=== PATIENT | female | born 1980 | race Caucasian/White ===

== ENCOUNTER 2016-03-13 20:52 | Emergency (ER) | payer MEDICAID ==
[2016-03-13 21:11] VITALS: RESP 16; TEMP 97.9
[2016-03-13] MEDS ORDERED: VANCOMYCIN 1 GM in NS 250 ML IV ONE (21:15)
--- NOTE | 2016-03-13 21:19 | UCPHY ---
H & P Time Seen by Provider: 03/13/16 21:02 Patient Type: Established HPI/ROS: CHIEF COMPLAINT: Infected left hand HPI: The patient is a 35-year-old female history of chronic pain and Graves disease who complains of pain and swelling to the dorsum of her left hand approximately 2 days ago. The patient denies any potential injury. She initially denied any break in skin, but then stated that she cut herself with a razor accidentally to her left hand. Upon further questioning, the patient admits that she has been injecting drugs into the vein of both hands recently. REVIEW OF SYSTEMS: Aside from elements discussed in the HPI, a comprehensive 10-point review of systems was reviewed and is negative. PMH: Chronic pain, Graves disease, substance abuse SOCIAL HISTORY: Patient admits to IV drugs use. FAMILY HISTORY: Reviewed, history of substance abuse. PHYSICAL EXAM: General:Patient is alert, in no acute distress. ENT:Eyes are normal to inspection. ENT inspection normal. Neck: Normal inspection. Full range of motion. Extremities: Left hand: Tenderness to palpation, erythema consistent with cellulitis is present over the dorsum of the left hand, primarily over the 4th metacarpal ray with some mild extension into the wrist. Multiple track freitas are noted along several veins in the forearm and hand. Neuro: Oriented x3. Normal motor function. Normal sensory function. Smoking Status: Current every day smoker Constitutional: Initial Vital Signs Temperature (C) 36.6 C 03/13/16 21:00 Heart Rate 98 03/13/16 21:00 Respiratory Rate 16 03/13/16 21:00 Blood Pressure 122/71 H 03/13/16 21:00 O2 Sat (%) 97 03/13/16 21:00 O2 Delivery Mode Room Air Allergies/Adverse Reactions: No Known Allergies Allergy (Verified 03/13/16 21:07) Home Medications: Medication Instructions Recorded Oxycodone HCl 01/19/13 Alprazolam 03/13/16 Cephalexin [Keflex] 500 mg PO Q6H #28 cap 03/13/16 Levothyroxine 03/13/16 Medical Decision Making ED Course/Re-evaluation: This patient presents with cellulitis of the hand likely caused by IV drug use. I had extensive discussion with the patient and which she admitted to using IV drugs. I counseled her regarding need for follow-up and she states that she is in process of setting up a stay at a rehab facility in [place]. I offered her further resources but she declined. Will treat her with IV dose of vancomycin here as well as a prescription for Keflex. Departure - Departure Disposition: Home, Routine, Self-Care Clinical Impression: Cellulitis Condition: Good Instructions: Cellulitis (ED) Additional Instructions: Return to the Urgent Care or ER within 48-72 hours for recheck to ensure the redness/infection is decreasing. If redness, pain increase or fever develops, return immediately. Please seek help for her substance abuse problem. Prescriptions: Cephalexin [Keflex] 500 mg PO Q6H #28 cap - PQRS PQRS Measurement: 134: Depression screening and followup, PRIME MD-PHQ2 (12 years and older) Over the last 2 weeks, how often have you been bothered by any of the following problems? 1. Feeling down, depressed, or hopeless? 2. Little interest or pleasure in doing things? Patient answered no to both 1 and 2 130: Documentation of medications. Reviewed all patient medications, doses, route and frequency. 226: Do you smoke? Yes. 51: 18 years old and older with diagnosis of COPD, spirometry performance. Spirometry not performed; equipment not available. Patient has no history of COPD 52: 18 years old and older with COPD and symptoms of COPD or FEV1<60% predicted prescribed a B Agonist. Spirometry not performed; equipment not available.
[2016-03-13 21:51] LABS: % IMMATURE GRANULYOCYTES 0.2 % (0.0-1.1); ABSOLUTE IMMATURE GRANULOCYTES 0.02 10^3/uL (0.00-0.10); ADD DIFF? NO; ADD MORPH? NO; ADD SCAN? NO; ATYPICAL LYMPHOCYTE FLAG 20 (0-99); FRAGMENT RBC FLAG 0 (0-99); HEMATOCRIT 38.1 % (38.0-47.0); HEMOGLOBIN 12.1 g/dL (12.6-16.3); LEFT SHIFT FLG 0 (0-99); LIPEMIA HEMOLYSIS FLAG 80 (0-99); MEAN CELL HEMOGLOBIN 28.4 pg (27.9-34.1); MEAN CELL HEMOGLOBIN CONCENTR. 31.8 g/dL (32.4-36.7); MEAN CELL VOLUME 89.4 fL (81.5-99.8); MEAN PLATELET VOLUME 9.6 fL (8.7-11.7); PLATELET CLUMPS FLAG 20 (0-99); PLATELET COUNT 290 10^3/uL (150-400); RED BLOOD CELL COUNT 4.26 10^6/uL (4.18-5.33); RED CELL DISTRIBUTION WIDTH 15.1 % (11.5-15.2)
[2016-03-13] MEDS ORDERED: CEPHALEXIN 500 MG CAP PO ONE (22:22)
[2016-03-13 22:34] LABS: ANION GAP 12 mEq/L (8-16); CALCIUM 9.3 mg/dL (8.5-10.4); CARBON DIOXIDE 25 mEq/l (22-31); CHLORIDE 103 mEq/L (97-110); CREATININE 0.6 mg/dL (0.6-1.0); GLOMERULAR FILTRATION RATE > 60; GLUCOSE 107 mg/dL (70-100); POTASSIUM 4.3 mEq/L (3.5-5.2); SODIUM 140 mEq/L (134-144)
[2016-03-13 23:26] VITALS: BP 104/70; PULSE 72; O2SAT 98
== END 2016-03-13 23:24 | disposition home or self-care (01) ==
LOC: CED 20:52
DX: L03.114 Cellulitis of left upper limb (principal); F17.200 Nicotine dependence, unspecified, uncomplicated
CPT/HCPCS: 80048-PO; 84703-PO; 85025-PO; 96365-PO; 99214-PO; G0463-PO; J3370

== ENCOUNTER 2016-06-03 23:35 | Emergency (ER) | payer MEDICAID ==
[2016-06-03 23:42] VITALS: BP 126/100; PULSE 79; RESP 16; TEMP 98.1; O2SAT 97
--- NOTE | 2016-06-03 23:51 | EDPHY ---
H & P Stated Complaint: infection in L hand. tingling fingers HPI/ROS: HPI CHIEF COMPLAINT: Possible left hand infection HISTORY OF PRESENT ILLNESS: Patient is a 35-year-old female significant past medical history for IV drug use, does IV heroin however tells me that she has been clean for month, presents emergency room with possible infection of the dorsum left hand. She has been there for a while. No active pus no fever. No redness. No warmth. Also states that she has some areas of ecchymosis to the digits of her left and right hand. She denies trauma. Denies easy bruising. She can emergency room tonight to possibly getting antibiotic for the dorsal left hand infection. Of note this patient has multiple track freitas of both for arms, dark blue purple. No signs of cellulitis or abscess or significant induration. Past Medical History: IV drug use Past Surgical History: no recent surgical history Social History: denies daily use of drugs alcohol tobacco products, IV drug use 1 month ago Family History: Noncontributory ROS REVIEW OF SYSTEMS: A comprehensive 10 point review of systems is otherwise negative aside from elements mentioned in the history of present illness. Exam Constitutional triage nursing summary reviewed, vital signs reviewed, awake/ alert. Eyes normal conjunctivae and sclera, EOMI, PERRLA. HENT normal inspection, atraumatic, moist mucus membranes, no epistaxis, neck supple/ no meningismus, no raccoon eyes. Respiratory clear to auscultation bilaterally, normal breath sounds, no respiratory distress, no wheezing. Cardiovascular rate normal, regular rhythm, no murmur, no edema, distal pulses normal. Gastrointestinal soft, non-tender, no rebound, no guarding, normal bowel sounds, no distension, no pulsatile mass. Genitourinary no CVA tenderness. Musculoskeletal no midline vertebral tenderness, full range of motion, no calf swelling, no tenderness of extremities, no meningismus, good pulses, neurovascularly intact. Skin track freitas multiple up both arms, left hand dorsum over the 2nd and 3rd metacarpal region area of induration but no fluctuance no abscess no warmth no redness, area of ecchymosis to the dorsum of the left 5th digit, and right index finger, appears to be capillary bruising, otherwise both hands neurovascular intact good pulse, good cap refill, warm extremities pink, warm, & dry, no rash, skin atraumatic. Neurologic awake, alert and oriented x 3, AAOx3, moves all 4 extremities equally, motor intact, sensory intact, CN II-XII intact, normal cerebellar, normal vision, normal speech. Psychiatric normal mood/affect. Heme/Lymph/Immune no lymphadenopathy. Differential Diagnosis: includes but is not limited to in a particular order IV drug use, ecchymosis, capillary break, trauma, infection, cellulitis Medical Decision Making: patient be placed on Keflex in case there is a component of cellulitis. Most likely cause of ecchymosis in her hands is capillary by breakage from either trauma delicate blood vessels history of IV drug use. Source: Patient - Personal History LMP (Females 10-55): 1-7 Days Ago Current Tetanus/Diphtheria Vaccine: Unsure Current Tetanus Diphtheria and Acellular Pertussis (TDAP): Unsure - Medical/Surgical History Hx Asthma: No Hx Chronic Respiratory Disease: No Hx Diabetes: No Hx Cardiac Disease: No Hx Renal Disease: No Hx Cirrhosis: No Hx Alcoholism: No Hx HIV/AIDS: No Hx Splenectomy or Spleen Trauma: No Other PMH: MED HX-GRAVE'S DISEASE,THYROID,ANXIETY. SURG-ORBITAL REDUCTION - Social History Smoking Status: Current every day smoker Constitutional: Initial Vital Signs Temperature (C) 36.7 C 06/03/16 23:40 Heart Rate 79 06/03/16 23:40 Respiratory Rate 16 06/03/16 23:40 Blood Pressure 126/100 H 06/03/16 23:40 O2 Sat (%) 97 06/03/16 23:40 O2 Delivery Mode Room Air Allergies/Adverse Reactions: No Known Allergies Allergy (Verified 03/13/16 21:07) Home Medications: Medication Instructions Recorded Oxycodone HCl 01/19/13 Alprazolam 03/13/16 Cephalexin [Keflex] 500 mg PO Q6H #28 cap 03/13/16 Levothyroxine 03/13/16 Cephalexin [Keflex] 500 mg PO Q6H #28 cap 06/04/16 Departure - Departure Disposition: Home, Routine, Self-Care Clinical Impression: Cellulitis Qualifiers: Site of cellulitis: unspecified site Qualified Code(s): L03.90 - Cellulitis, unspecified Condition: Good Instructions: Cellulitis (ED) Additional Instructions: 1. Use warm compresses. 2. watch your sites for further infection. 3. take Keflex as prescribed. Referrals: KIMBERLEY ASIF [Primary Care Provider] - As per Instructions Prescriptions: Cephalexin [Keflex] 500 mg PO Q6H #28 cap
== END 2016-06-04 00:21 | disposition home or self-care (01) ==
DX: L03.114 Cellulitis of left upper limb (principal); F17.200 Nicotine dependence, unspecified, uncomplicated

== ENCOUNTER 2016-06-11 09:17 | Emergency (ER) | payer MEDICAID ==
[2016-06-11 09:29] VITALS: RESP 16
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
--- NOTE | 2016-06-11 09:57 | CPEKG ---
Heart Rate: 53 RR Interval: 1132 P-R Interval: 152 QRSD Interval: 80 QT Interval: 476 QTC Interval: 447 P [place]: 25 QRS [place]: 46 T Wave [place]: 35 EKG Severity - OTHERWISE NORMAL ECG - EKG Impression: SINUS RHYTHM Electronically Signed By: Mónica Hackett 11-Jun-2016 10:30:29
[2016-06-11 10:46] VITALS: O2SAT 95
[2016-06-11 11:19] VITALS: BP 116/74; PULSE 54; TEMP 98.6
== END 2016-06-11 11:19 | disposition home or self-care (01) ==
LOC: EDUNIT#
DX: F41.9 Anxiety disorder, unspecified (principal); F17.200 Nicotine dependence, unspecified, uncomplicated

== ENCOUNTER 2017-07-30 02:19 | Emergency (ER) | payer MEDICAID ==
--- NOTE | 2017-07-30 02:29 | EDPHY ---
H & P Time Seen by Provider: 07/30/17 02:29 HPI/ROS: HPI CHIEF COMPLAINT: Right but abscess wound check HISTORY OF PRESENT ILLNESS: Patient very pleasant 37-year-old female she is currently IV heroin user does IV drugs actively, she presents emergency room with a wound that has been healing on her right gluteus. She states she was hospitalized in [facility] for 9 days for a right gluteus abscess. She had a wound VAC. It has been healing very nicely she has been doing wet-to-dry dressing changes. She recently got her bag stool in and states that her wet to dry dressing supplies are gone and she is interested in possibly being restarted on antibiotic. She denies any fever, denies significant pain. She is here for evaluation of the right gluteus wound. Past Medical History: IV drug use, heroin, thyroid disease Past Surgical History: Thyroidectomy Social History: Daily IV heroin use. Family History: Noncontributory ROS REVIEW OF SYSTEMS: A comprehensive 10 point review of systems is otherwise negative aside from elements mentioned in the history of present illness. Exam Constitutional triage nursing summary reviewed, vital signs reviewed, awake/ alert. Eyes normal conjunctivae and sclera, EOMI, PERRLA. HENT normal inspection, atraumatic, moist mucus membranes, no epistaxis, neck supple/ no meningismus, no raccoon eyes. Respiratory clear to auscultation bilaterally, normal breath sounds, no respiratory distress, no wheezing. Cardiovascular rate normal, regular rhythm, no murmur, no edema, distal pulses normal. Gastrointestinal soft, non-tender, no rebound, no guarding, normal bowel sounds, no distension, no pulsatile mass. Genitourinary no CVA tenderness. Musculoskeletal no midline vertebral tenderness, full range of motion, no calf swelling, no tenderness of extremities, no meningismus, good pulses, neurovascularly intact. Skin extensive track freitas up the arms. Right gluteus there is a 3 x 4 cm area wound that is healing. It is healing by secondary intention from the inside out granulated tissue. It is not very deep it is rather superficial. There is no evidence of significant infection. No pus. No drainage. No warmth. No significant redness. No significant pain. Neurologic awake, alert and oriented x 3, AAOx3, moves all 4 extremities equally, motor intact, sensory intact, CN II-XII intact, normal cerebellar, normal vision, normal speech. Psychiatric normal mood/affect. Heme/Lymph/Immune no lymphadenopathy. Differential Diagnosis: Includes but is not limited to in a particular order healing wound. Need for wet-to-dry dressing changes, need for Keflex antibiotic. Medical Decision Making: Plan for this patient will supply her with wet-to-dry dressing changes. Additionally will give her prescription for Keflex, and return precautions discussed with her she understands return emergency room she develops worsening symptoms pain, swelling, fever, drainage. Additionally recommend stopping IV heroin use. She understands. Source: Patient - Medical/Surgical History Hx Asthma: No Hx Chronic Respiratory Disease: No Hx Diabetes: No Hx Cardiac Disease: No Hx Renal Disease: No Hx Cirrhosis: No Hx Alcoholism: No Hx HIV/AIDS: No Hx Splenectomy or Spleen Trauma: No Other PMH: MED HX-GRAVE'S DISEASE,THYROID,ANXIETY. SURG-ORBITAL REDUCTION - Social History Smoking Status: Current every day smoker Allergies/Adverse Reactions: No Known Allergies Allergy (Verified 06/11/16 09:23) Home Medications: Medication Instructions Recorded Oxycodone HCl 01/19/13 Alprazolam 03/13/16 Cephalexin [Keflex] 500 mg PO Q6H #28 cap 03/13/16 Levothyroxine 03/13/16 Cephalexin [Keflex] 500 mg PO Q6H #28 cap 06/04/16 ALPRAZolam [Alprazolam] 2 mg PO TID #9 tablet 06/11/16 Cephalexin [Keflex] 500 mg PO Q6H #28 cap 07/30/17 Departure - Departure Disposition: Home, Routine, Self-Care Clinical Impression: Buttock wound Qualifiers: Encounter type: initial encounter Laterality: right Qualified Code(s): S31.819A - Unspecified open wound of right buttock, initial encounter Condition: Good Instructions: Acute Wounds (ED), Wound Healing and Your Diet (ED) Referrals: NONE *PRIMARY CARE P,. [Primary Care Provider] - As per Instructions Prescriptions: Cephalexin [Keflex] 500 mg PO Q6H #28 cap
[2017-07-30 02:40] VITALS: BP 137/85
== END 2017-07-30 02:45 | disposition home or self-care (01) ==
DX: S31.819A Unspecified open wound of right buttock, initial encounter (principal); F17.200 Nicotine dependence, unspecified, uncomplicated; X58.XXXA Exposure to other specified factors, initial encounter

== ENCOUNTER 2017-12-11 09:47 | Emergency (ER) | payer MEDICAID ==
[2017-12-11 09:54] VITALS: BP 126/89
[2017-12-11] MEDS ORDERED: CEPHALEXIN 500 MG CAP PO ONE (10:19)
[2017-12-11] MEDS ORDERED: SULFAMETHOX/TMP 800/160 MG 1 TAB PO ONE (10:20)
--- NOTE | 2017-12-11 10:21 | EDPHY ---
H & P Stated Complaint: ? Infection in Heroin injection sites Time Seen by Provider: 12/11/17 09:59 HPI/ROS: CHIEF COMPLAINT: Multiple sores HISTORY OF PRESENT ILLNESS: This is a pleasant 37-year-old female with a past medical history of IV heroin abuse, last used several days ago, presents for medical clearance with [facility] for sores on both calves and both upper arms. She denies documented fever, chills, palpitations, nausea, vomiting, myalgias. She has required hospitalization in the past for a gluteal abscess that required surgical drainage. She has not noticed drainage from either of the sores. No reported discharge from the areas, redness, numbness or sensory loss to the hands, or severe swelling. Unknown history of MRSA. No other illicit drug abuse. She is most concerned about a sore on the right upper arm and reports that this was a "miss" from a attempted venous access. REVIEW OF SYSTEMS: Constitutional: No fever, no chills. Eyes: No discharge, vision change ENT: No sore throat, congestion, ear pain. Cardiovascular: No chest pain, no palpitations. Respiratory: No cough, no shortness of breath. Gastrointestinal: No abdominal pain, no vomiting, diarrhea. Genitourinary: No hematuria, dysuria, flank pain Musculoskeletal: No back pain. Skin: As above Neurological: No headache, dizziness, weakness. PHYSICAL EXAM: General Appearance: Alert, oriented, appropriate, cooperative, NAD, well hydrated, non-toxic appearing, VSS, tachycardic afebrile no hypoxia. Cardiac: Tachycardic, regular rhythm no murmurs or gallops. Neurological: Alert and oriented x 3, CN 2-12 grossly intact, normal gait no ataxia, DTR's intact, normal sensation Skin: Flat erythematous sores to bilateral inner calf. No palpable fluctuance , induration, necrosis or clinical concern for necrotizing fasciitis or deep space abscess. Slightly bulging sore on the inner aspect of the right proximal upper arm. Bedside ultrasound reveals no underlying abscess or fluid collection. No clinical signs of thrombophlebitis. Musculoskeletal: extremities are symmetrical, full range of motion, no tenderness, deformity, swelling, or erythema, no e/o septic joint Psychiatric: Patient is oriented X 3, there is no agitation. Source: Patient Exam Limitations: No limitations - Personal History Current Tetanus/Diphtheria Vaccine: Yes Current Tetanus Diphtheria and Acellular Pertussis (TDAP): Yes - Medical/Surgical History Hx Asthma: No Hx Chronic Respiratory Disease: No Hx Diabetes: No Hx Cardiac Disease: No Hx Renal Disease: No Hx Cirrhosis: No Hx Alcoholism: No Hx HIV/AIDS: No Hx Splenectomy or Spleen Trauma: No Other PMH: MED HX-GRAVE'S DISEASE,THYROID,ANXIETY. SURG-ORBITAL REDUCTION - Family History Significant Family History: No pertinent family hx - Social History Smoking Status: Current every day smoker Drug Use: Heroin Constitutional: Initial Vital Signs Temperature (C) 37.2 C 12/11/17 09:51 Heart Rate 105 H 12/11/17 09:51 Respiratory Rate 16 12/11/17 09:51 Blood Pressure 126/89 H 12/11/17 09:51 O2 Sat (%) 95 12/11/17 09:51 O2 Delivery Mode Room Air Allergies/Adverse Reactions: No Known Allergies Allergy (Verified 07/30/17 02:38) Home Medications: Medication Instructions Recorded Oxycodone HCl 01/19/13 Alprazolam 03/13/16 Cephalexin [Keflex] 500 mg PO Q6H #28 cap 03/13/16 Levothyroxine 03/13/16 Cephalexin [Keflex] 500 mg PO Q6H #28 cap 06/04/16 ALPRAZolam [Alprazolam] 2 mg PO TID #9 tablet 06/11/16 Cephalexin [Keflex] 500 mg PO Q6H #28 cap 07/30/17 Cephalexin [Keflex] 500 mg PO QID #40 cap 12/11/17 Sulfamethox/Tmp 800/160 mg 1 tab PO BID #14 tab 12/11/17 [Bactrim Ds] Medical Decision Making - Diagnostics Imaging Results: See chart for bedside ultrasound results performed by myself, no clinical indication of drainable fluid collection or abscess Procedures: Procedure: Ultrasound evaluation of the skin, proximal right upper arm Indications: The patient has skin erythema and induration and soft tissue abscess needs to be ruled out. Procedure: Using the linear probe the area in question was imaged and there was no evidence of abscess material throughout this region. Findings: Cellulitis without any evidence of soft tissue abscess was demonstrated on bedside ultrasound. This procedure was performed by myself. ED Course/Re-evaluation: Patient was seen independently by established practice protocols. Secondary supervising physician at time of evaluation was Dr. Frankie Guy. 37-year-old female with history of IV heroin abuse presents for evaluation of multiple sores on bilateral upper and lower extremities after IV heroin use. Patient is slightly tachycardic but admits to being anxious, afebrile and remainder of vital signs stable. No documented fevers or history of nausea, vomiting, myalgias. Bedside ultrasound reveals no deep space abscess of the right proximal upper arm. No clinical concern for septic joint, necrotizing fasciitis, compartment syndrome, deep space abscess, sepsis. Patient was medically cleared, placed on oral antibiotics and discharged to [facility] with [facility] Differential Diagnosis: Differential diagnosis includes but not limited to cellulitis, deep space abscess, necrotizing fasciitis, thrombophlebitis, septic phlebitis, septic joint - Data Points Medications Given: Discontinued Medications Cephalexin HCl (Keflex) 500 mg PO EDNOW ONE PRN Reason: Protocol Stop: 12/11/17 10:20 Last Admin: 12/11/17 10:32 Dose: 500 mg Trimethoprim/Sulfamethoxazole (Bactrim Ds) 1 ea PO EDNOW ONE PRN Reason: Protocol Stop: 12/11/17 10:21 Last Admin: 12/11/17 10:32 Dose: 1 ea Departure - Departure Disposition: Law Enforcement/Court/Skilled Nursing Condition: Good Instructions: Cellulitis (ED) Additional Instructions: Stop using IV drugs. Please take all antibiotics as prescribed and complete the full course. Monitor symptoms closely. Follow up with a primary care doctor in 24-48 hours. Return to the emergency department for increased pain, swelling, difficulty moving the joints of the arms or legs, documented fever greater than 100.4, vomiting, palpitations, increased redness or swelling to the sores, or any other concerns. Referrals: NONE *PRIMARY CARE P,. [Primary Care Provider] - As per Instructions [facility],. [Clinic] - As per Instructions Prescriptions: Cephalexin [Keflex] 500 mg PO QID #40 cap Sulfamethox/Tmp 800/160 mg [Bactrim Ds] 1 tab PO BID #14 tab Print Language: Icelandic
== END 2017-12-11 10:49 ==
DX: L03.113 Cellulitis of right upper limb (principal); F11.10 Opioid abuse, uncomplicated

== ENCOUNTER 2018-04-05 09:49 | Emergency (ER) | payer MEDICAID ==
[2018-04-05 10:02] VITALS: BP 119/75
--- NOTE | 2018-04-05 10:10 | EDPHY ---
H & P Stated Complaint: missed methadone doses Time Seen by Provider: 04/05/18 09:55 - Medical/Surgical History Hx Asthma: No Hx Chronic Respiratory Disease: No Hx Diabetes: No Hx Cardiac Disease: No Hx Renal Disease: No Hx Cirrhosis: No Hx Alcoholism: No Hx HIV/AIDS: No Hx Splenectomy or Spleen Trauma: No Other PMH: MED HX-GRAVE'S DISEASE,THYROID,ANXIETY. SURG-ORBITAL REDUCTION - Social History Smoking Status: Current every day smoker Constitutional: Initial Vital Signs Temperature (C) 37.0 C 04/05/18 10:01 Heart Rate 116 H 04/05/18 10:01 Respiratory Rate 16 04/05/18 10:01 Blood Pressure 119/75 04/05/18 10:01 O2 Sat (%) 93 04/05/18 10:01 O2 Delivery Mode Room Air Allergies/Adverse Reactions: No Known Allergies Allergy (Verified 04/05/18 10:00) Home Medications: Medication Instructions Recorded Oxycodone HCl 01/19/13 Alprazolam 03/13/16 Cephalexin [Keflex] 500 mg PO Q6H #28 cap 03/13/16 Levothyroxine 03/13/16 Cephalexin [Keflex] 500 mg PO Q6H #28 cap 06/04/16 ALPRAZolam [Alprazolam] 2 mg PO TID #9 tablet 06/11/16 Cephalexin [Keflex] 500 mg PO Q6H #28 cap 07/30/17 Cephalexin [Keflex] 500 mg PO QID #40 cap 12/11/17 Sulfamethox/Tmp 800/160 mg 1 tab PO BID #14 tab 12/11/17 [Bactrim Ds] METHADONE HCL 04/05/18 Medical Decision Making ED Course/Re-evaluation: CHIEF COMPLAINT: Missed Methadone for 3 days HISTORY OF PRESENT ILLNESS: The patient is a 37 y/o female with a history of polysubstance abuse complaining that she missed 3 days of Methadone. She is seen by a Methadone clinic but states they closed early on Thursday and are closed today since it's a holiday. She is concerned about missing 3 days of Methadone. No fever, headache, lightheadedness, chest pain, heart palpitations, shortness of breath, cough, abdominal pain, urinary or bowel complaints, numbness, paresthesias. REVIEW OF SYSTEMS: A 10 point review of systems was performed and is negative with the exception of the elements mentioned in the history of present illness. PHYSICAL EXAM: HR, BP, O2 Sat, RR. Temp noted General Appearance: Alert, well hydrated, appropriate, and non-toxic appearing. Head: Atraumatic without scalp tenderness or obvious injury Eyes: Pupils equal, round, reactive to light and accommodation, EOMI, no trauma , no injection. Ears: Clear bilaterally, no perforation, normal landmarks Nose: Atraumatic, no rhinorrhea, clear. Throat: There is no erythema or exudates, no lesions, normal tonsils, mucus membranes moist. Neck: Supple, 2+ carotid upstroke, nontender, no lymphadenopathy. Respiratory: No retractions, no distress, no wheezes, and no accessory muscle use. Lungs are clear to auscultation bilaterally. Cardiovascular: Regular rate and rhythm, no murmurs, rubs, or gallops. Bilateral carotid, radial, dorsalis pedis, and posterior tibial pulses intact. Good capillary refill all extremities. Gastrointestinal: Abdomen is soft, nontender, non-distended, no masses, no rebound, no guarding, no peritoneal signs. Musculoskeletal: Normal active ROM of all extremities, atraumatic. Neurological: Alert, appropriate, and interactive. The patient has normal DTRs and non-focal cranial nerves, motor, sensory, and cerebellar exam. Skin: No rashes, good turgor, no nodules on palpation. Past medical history: Polysubstance abuse, Grave's disease Past surgical history: Orbit surgery Family history: Denies Social history: Transient, single, not employed DIAGNOSTICS/PROCEDURES/CRITICAL CARE TIME: Not indicated. DIFFERENTIAL DIAGNOSIS: The differential diagnosis for the patient's symptoms included but was not limited to hypoglycemia, polysubstance withdrawal, and intoxicants. MEDICAL DECISION MAKING: The patient is a 37 y/o female with a history of polysubstance abuse presenting after she missed 3 days of Methadone. I am unable to prescribe or give this patient any Methadone, so I have advised her to follow up with her clinic or go to a hospital in [place] who are allowed to give the patient Methadone. Patient is comfortable with this plan. Departure - Departure Disposition: Home, Routine, Self-Care Clinical Impression: Methadone maintenance therapy patient Condition: Good Additional Instructions: 1. Please follow up with your Methadone clinic to receive your Methadone. 2. Return to the Emergency Department for fever, chest pain, shortness of breath , increasing pain or other worsening of condition. Referrals: JONH DURBIN [Other] - As per Instructions Report Scribed for: Dario Joseph Report Scribed by: Nicole Garibay Date of Report: 04/05/18 Time of Report: 10:14
== END 2018-04-05 10:14 | disposition home or self-care (01) ==
DX: Z79.891 Long term (current) use of opiate analgesic (principal)

== ENCOUNTER 2018-06-24 13:15 | Emergency (ER) | payer MEDICAID ==
[2018-06-24] MEDS ORDERED: LIDOCAINE 4%/MENTHOL 1% PATCH TD ONE (15:41)
--- NOTE | 2018-06-24 15:46 | EDPHY ---
General Time Seen by Provider: 06/24/18 15:11 Narrative: CLINICAL IMPRESSION: Atraumatic left shoulder and clavicle pain ASSESSMENT/PLAN: 38-year-old female presents to the emergency department with atraumatic clavicle and shoulder pain. Patient has obvious swelling to the medial aspect of the clavicle with reproducible pain although seems out of proportion to exam findings. Patient refuses to move the left shoulder. No associated underlying chest pain or shortness of breath. X-rays negative for acute fracture, dislocation or bony abnormality. Patient takes methadone regularly. She has had several recent prescription refills of [place]. I explained to her our narcotic prescription policy. A Lidoderm patch was placed over the clavicle and shoulder and I advised she follow up with PCP and Orthopedics. Referral given. Sling provided for comfort. Warning signs return to ED sooner discussed discharge. DIFFERENTIAL DX: Differential includes but not limited to acute fracture, strain/sprain, joint dislocation, soft tissue contusion ED PROCEDURES: Procedure: Splint placement. A sling splint was applied to left arm by radio technician, supervised by myself. After application of the splint I returned and re-examined the patient. The splint was adequately immobilizing the joint and distal to the splint the patient's circulation and sensation was intact. ED COURSE: X-ray show no evidence of clavicle fracture, shoulder dislocation or proximal humerus fracture. PDMP record shows this patient filled number 60 hydrocodone on June 04, number 90 Xanax on June 04, number 60 hydrocodone on May 05. These were filled by different prescribers. Patient also tells me she is going to the methadone clinic regularly CHIEF COMPLAINT: Left shoulder face HPI: 38-year-old female with a history of opioid dependence, on methadone, presents to the emergency department complaining of 3 days of atraumatic left clavicle and shoulder pain. Patient is swollen on the medial aspect of the clavicle. She reports no heavy lifting or injury. No chest pain or shortness of breath. She went to urgent care yesterday was given injection of Toradol and x-rays. She states "I am in just so much pain". Patient does tell me that she goes to the methadone clinic regularly. No reports of numbness or loss of sensation to the hands or fingers. No elbow wrist or hand pain. PAST MEDICAL HISTORY: Opioid dependence, on methadone, thyroid disease, anxiety Pertinent Past Surgical History: Facial surgery Social History: Smoker REVIEW OF SYSTEMS: All other systems negative Constitutional: No fever, no chills Musculoskeletal: No deformity, + joint pain Skin: No rashes, color change or open wounds. Neurological: No sensory loss or weakness. PHYSICAL EXAM: General Appearance: Alert, oriented, appropriate for age, cheerful, lying in the bed, pain out of proportion to exam findings on light palpation of the medial clavicle. Patient refusing to move the left shoulder cooperative, NAD, well hydrated, non-toxic appearing, VSS, no hypoxia. Neurological: Alert and oriented x 3, normal sensation and strength of extremities Skin: Warm, dry, no rashes, no nodules on palpation. Musculoskeletal: Obvious swelling to medial aspect of the clavicle. Patient refusing to move the left shoulder due to pain. Distal neurovascular exam intact. Normal range of motion of the elbow hand and wrist on the left. V[employer] strength 5/5 bilaterally. No reproducible chest wall pain. Lungs clear. MEDICAL DECISION MAKING: Patient was seen independently. Secondary supervising physician at time of evaluation was Dr. Yuosif . Diagnosis: Atraumatic left shoulder pain. New, requires workup Summary: See assessment and plan for summary of ED visit Independent visualization of images, tracing, or specimens yes. Patient Progress: Stable for discharge . - Diagnostics Imaging Results: Imaging Impressions Shoulder X-Ray 06/24/18 15:12 Impression: 1. Negative left shoulder radiographs. 2. Interstitial thickening in the central and lower left lung may represent interstitial lung disease. Correlation with PA and lateral chest radiography may be of benefit. - History Smoking Status: Current every day smoker - Objective Vital Signs: Initial Vital Signs Temperature (C) 37.5 C 06/24/18 13:46 Heart Rate 115 H 06/24/18 13:46 Respiratory Rate 16 06/24/18 13:46 Blood Pressure 156/88 H 06/24/18 13:46 O2 Sat (%) 95 06/24/18 13:46 O2 Delivery Mode Room Air Allergies/Adverse Reactions: No Known Allergies Allergy (Verified 06/24/18 13:44) Home Medications: Medication Instructions Recorded Levothyroxine 03/13/16 Cephalexin [Keflex] 500 mg PO Q6H #28 cap 07/30/17 METHADONE HCL 04/05/18 Alprazolam 06/24/18 Hydrocodone/APAP 5/325 06/24/18 Medications Given: Discontinued Medications Miscellaneous Medication (Icy Hot Lidocaine/Menthol 4%/1% Patch) 1 patch TD EDNOW ONE Stop: 06/24/18 15:42 Last Admin: 06/24/18 16:00 Dose: 1 patch Departure - Departure Disposition: Home, Routine, Self-Care Clinical Impression: Shoulder pain, left Qualifiers: Chronicity: acute Qualified Code(s): M25.512 - Pain in left shoulder Condition: Good Instructions: Shoulder Pain (ED) Additional Instructions: DISCHARGE INSTRUCTIONS FROM YOUR DOCTOR Thank you for visiting our emergency department today. You were treated by a physician dairy and food laboratory assistant today and your case was reviewed with our ED Attending physician. Please keep in mind that discharge from the emergency department does not mean that there is nothing wrong - it simply means that we have not identified an emergency condition that requires further evaluation or treatment in the hospital. You should always plan to follow up with primary care for re- evaluation of your condition in the next 2-3 days. If you have been referred to a specialist, please call as soon as possible (today or tomorrow) to schedule your follow up appointment at the appropriate time. X-RAYS OF THE LEFT SHOULDER AND CLAVICLE SHOW NO EVIDENCE OF ACUTE FRACTURE OR DISLOCATION. GIVEN THAT YOU ARE ON METHADONE, WE ARE NOT PROVIDING YOU WITH A PRESCRIPTION FOR NARCOTIC PAIN MEDICATION. RECORDS INDICATE THAT YOU FILLED 60 TABLETS OF HYDROCODONE IN MID MAY AND 60 TABLETS OF HYDROCODONE IN LATE APRIL. PRESCRIPTIONS FOR NARCOTIC PAIN MEDICATION SHOULD COME FROM A PRIMARY CARE DOCTOR. A LIDODERM NUMBING PATCH WAS PLACED TO THE CLAVICLE AND CAN BE CHANGED IN 12 HR. YOU CAN PURCHASE THESE AT THE [facility]. PLEASE TAKE TYLENOL OR IBUPROFEN FOR PAIN CONTROL. PLEASE FOLLOW-UP WITH ORTHOPEDICS. A REFERRAL WAS GIVEN. RETURN TO THE ED FOR ANY OTHER CONCERNS. People present with illnesses and injuries in different ways, and it is always possible that we have missed something. You may always return for re-evaluation if symptoms worsen or if they are not improving or if you develop new/different symptoms. Again, thank you for choosing our emergency department. We hope that you feel better. Referrals: NONE *PRIMARY CARE P,. [Primary Care Provider] - As per Instructions Treva Hurtado MD [Medical Doctor] - 2-3 days, call for appt.
[2018-06-24 16:17] VITALS: BP 129/87
[2018-06-24] MEDS ORDERED: PATCH REMOVAL 1 EA PATCH TD SCH (21:00)
== END 2018-06-24 16:17 | disposition home or self-care (01) ==
DX: M25.512 Pain in left shoulder (principal)
CPT/HCPCS: A4565